=== PATIENT | male | born 1985 | race African-American/Black ===

== ENCOUNTER → 2018-07-05 | Outpatient (CLI) | payer OTHER ==
[2015-08-25 05:32] VITALS: BP 131/75
--- NOTE | 2018-07-05 13:01 | RAD ---
EXAM: Lumbar spine, 3 views. HISTORY: Pain. COMPARISON: 01/07/2015. FINDINGS: 3 views of the lumbar spine are obtained. There are hypoplastic T12 ribs, a normal variant. There is slight sacralization of the left L5 transverse process and there is a rudimentary L5-S1 disc. There is no listhesis. The vertebral bodies are normal in height. There is mild levoscoliosis. There is right facet arthropathy at the lower lumbar levels. IMPRESSION: 1. Right facet arthropathy at the lower lumbar levels. 2. Mild levoscoliosis. Electronically signed by: Livia Chaidez MD (07/05/2018 12:57 PM) [facility]
== END | disposition home or self-care (01) ==
LOC: RAD 11:05
PROVIDERS: ATTEND Family Medicine
DX: M41.86 Other forms of scoliosis, lumbar region (principal); M12.88 Other specific arthropathies, not elsewhere classified, other specified site
CPT/HCPCS: 72100

== ENCOUNTER 2019-02-27 19:28 | Emergency (ER) | payer OTHER ==
[~2019-02-27] VITALS: Ht 157.5 cm; Wt 76.7 kg
[2019-02-27] MEDS ORDERED: TETRACAINE 0.5% OPHTH SOLUTION 4ML BOTTLE. OS ONE (19:45)
[2019-02-27 19:50] VITALS: BP 134/89
--- NOTE | 2019-02-27 19:52 | PHYS DOC ---
Past Medical History Past Medical History: Other Additional Past Medical Histor: scoilosis Past Surgical History: Other Additional Past Surgical Histo: left eye surgery Alcohol Use: None Drug Use: None Adult General Chief Complaint Chief Complaint: EYE PROBLEMS HPI HPI Patient is a 33 year old male presents to the ED complaining of left eye irritation since 3:00pm today. 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 Patient went bowling with his halfway today. States that the pain got worse after he felt like he got something in his eye. Patient wears glasses. States he can see per his normal. Patient states he has not been taking his glaucoma drops over the last couple of days. The patient states he takes timolol. States he follows up with Dr. Mcintosh at . Denies headache, nausea/vomiting, vision changes, nausea/vomiting, green discharge, diplopia, traumatic injury, or fever. Review of Systems Review of Systems Constitutional: Denies fever or chills [] Eyes: Complains of left eye irritation. Denies change in visual acuity or redness. HENT: Denies nasal congestion or sore throat [] Respiratory: Denies cough or shortness of breath [] Cardiovascular: No additional information not addressed in HPI [] GI: Denies abdominal pain, nausea, vomiting, bloody stools or diarrhea [] : Denies dysuria or hematuria [] Musculoskeletal: Denies back pain or joint pain [] Integument: Denies rash or skin lesions [] Neurologic: Denies headache, focal weakness or sensory changes [] All other systems were reviewed and found to be within normal limits, except as documented in this note. Current Medications Current Medications Current Medications Medications (Trade) Dose Ordered Sig/Luciano Start Time Stop Time Status Last Admin Dose Admin Fluorescein Sodium (Ful-[place]) 1 strip 1X ONCE 02/27/19 20:00 02/27/19 20:01 DC 02/27/19 20:22 1 STRIP Tetracaine HCl (Tetracaine) 1 drop 1X ONCE 02/27/19 19:45 02/27/19 19:58 DC 02/27/19 20:22 1 DROP Allergies Allergies Allergies Coded Allergies Type Severity Reaction Last Updated Verified No Known Drug Allergies 05/29/14 No Physical Exam Physical Exam Constitutional: Well developed, well nourished, no acute distress, non-toxic appearance. [] HENT: Normocephalic, atraumatic, bilateral external ears normal, oropharynx moist, no oral exudates, nose normal. [] Eyes: PERRLA, EOMI, mild left eye conjunctival injection, no discharge. No hyphema. No green discharge. Corneal abrasion to left eye at 3 o'clock. B: 20/25 OS: 20/50 OD: 20/50 [] IOP range from 13-15 in both eyes. Neck: Normal range of motion, no tenderness, supple, no stridor. [] Cardiovascular:Heart rate regular rhythm, no murmur [] Lungs & Thorax: Bilateral breath sounds clear to auscultation [] Abdomen: Bowel sounds normal, soft, no tenderness, no masses, no pulsatile masses. [] Skin: Warm, dry, no erythema, no rash. [] Back: No tenderness, no CVA tenderness. [] Extremities: No tenderness, no cyanosis, no clubbing, ROM intact, no edema. [] Neurologic: Alert and oriented X 3, normal motor function, normal sensory function, no focal deficits noted. [] Psychologic: Affect normal, judgement normal, mood normal. [] Current Patient Data Vital Signs Vital Signs Date Time Temp Pulse Resp B/P (MAP) Pulse Ox O2 Delivery O2 Flow Rate FiO2 02/27/19 19:50 98.4 64 16 134/89 (104) 99 Room Air 98.4 EKG EKG [] Radiology/Procedures Radiology/Procedures [] Course & Med Decision Making Course & Med Decision Making Pertinent Labs and Imaging studies reviewed. (See chart for details) []Patient's symptoms resolved with tetracaine drops given in the ED. Small corneal abrasion seen to left eye at 3 o' clock. States he is feeling much better. Visual acuity within normal limits. Normal intraocular pressures. Patient states that he can follow up with his doctor at tomorrow. Discussed with patient the importance of taking his timolol drops and risks if he does not. Discussed importance of follow-up and reasons to return to the ED. Patient understands and agrees with plan. Discussed case with attending physician whom agrees with eval and plan. Dragon Disclaimer Dragon Disclaimer This electronic medical record was generated, in whole or in part, using a voice recognition dictation system. Departure Departure Impression: Primary Impression: Eye irritation Disposition: 01 HOME, SELF-CARE Condition: IMPROVED Referrals: ADIEL SALVADOR (PCP) Patient Instructions: Allergic Conjunctivitis BERE SARAVIA February 27, 2019 19:52
[2019-02-27] MEDS ORDERED: FLUORESCEIN OPHTH TEST STRIP. OS ONE (20:00)
== END 2019-02-27 20:59 | disposition home or self-care (01) ==
LOC: ER 19:28
DX: S05.02XA Injury of conjunctiva and corneal abrasion without foreign body, left eye, initial encounter (principal); H57.89 Other specified disorders of eye and adnexa; H40.9 Unspecified glaucoma; Z98.890 Other specified postprocedural states; X58.XXXA Exposure to other specified factors, initial encounter; Y93.89 Activity, other specified; Y92.89 Other specified places as the place of occurrence of the external cause; Y99.8 Other external cause status
CPT/HCPCS: 99283